=== PATIENT | female | born 1970 | race Caucasian/White ===

== ENCOUNTER → 2016-07-19 | Outpatient (CLI) | payer OTHER ==
[~2016-07-19] MED LIST: CALCIUM 600 +1 EA16 PO; DEXAMETHASONE4 MG PO; HYDROCHLOROTHIA25 MG PO; LEVETIRACETAM500 MG PO; VITAMIN D32000 UNI1 PO; ZESTORETIC 20-1 EAC1 PO
== END | disposition home or self-care (01) ==
LOC: JMC/R 07:57
DX: Z51.0 Encounter for antineoplastic radiation therapy (principal); C34.92 Malignant neoplasm of unspecified part of left bronchus or lung; C79.31 Secondary malignant neoplasm of brain
CPT/HCPCS: 77290; 77334

== ENCOUNTER 2016-11-09 13:07 | Observation (INO) | payer OTHER ==
[~2016-11-09] VITALS: Ht 157.5 cm; Wt 68.8 kg
[2016-11-09 14:13] LABS: HEMATOCRIT 25.3 % (36.0-46.0); MCH 31.7 PG (29.0-34.0); MCHC 33.2 G/DL (30.0-36.0); MCV 95.5 FL (83-99); MEAN PLAT.VOLUME 12.2 uM^3 (9.5-12.4); RBC DIS.WIDTH-CV 16.9 % (11.8-14.6); RBC DIS.WIDTH-SD 53.9 % (39-53); RED BLOOD COUNT 2.65 M/uL (3.80-5.20); WHITE BLOOD COUNT 5.9 K/uL (4.1-10.2)
[2016-11-09 14:25] LABS: D-DIMER ELISA 0.31 mg/L FEU (< 0.57)
[2016-11-09 14:25] LABS: PLATELET COUNT 65 K/uL (156-360)
[2016-11-09 14:30] LABS: CHLORIDE 99 mEq/L (99-109); POTASSIUM 3.6 mEq/L (3.7-5.4); SODIUM 135 mEq/L (136-147)
[2016-11-09 14:32] LABS: GLUCOSE 103 mg/dL (70-99)
[2016-11-09 14:33] LABS: ANION GAP 12 MEQ/L (2-14)
[2016-11-09 14:36] LABS: GFR ESTIMATE (CALCULATED) > 59 mL/min/
[2016-11-09 14:37] LABS: UREA NITROGEN (BUN) 7 mg/dL (9-23)
[2016-11-09 14:40] LABS: TROP-I INTERPRETATION NEGATIVE; TROPONIN-I < 0.01 ng/mL (0.0-0.30)
[2016-11-09 15:56] LABS: ABS NEUTROPHIL COUNT 4.5; ANISOCYTOSIS 1+; EOSINOPHIL ABS CT 0; LYMPHOCYTES 16.7 % (15.0-45.0); MACROCYTES 1+; MICROCYTOSIS 1+; NUCLEATED RBC'S 0.9; SEG.NEUTROPHILS 76.3 % (46.0-76.0); TEAR DROP CELLS 1+
[2016-11-09] MEDS ORDERED: KEPPRA500 MG PO (19:41)
[2016-11-09] MEDS ORDERED: ZESTORETIC 10-1 EAC1 PO (19:41)
[2016-11-09] MEDS ORDERED: FLUCONAZOLE100 MG PO (19:42)
[2016-11-09] MEDS ORDERED: CYANOCOBALAM1000 MCG PO (19:42)
[2016-11-09] MEDS ORDERED: ALPRAZOLAM0.25 M2 PO (19:42)
[2016-11-09] MEDS ORDERED: FOLIC ACID1 MG PO (19:43)
[2016-11-09] MEDS ORDERED: XARELTO20 MG PO (19:43)
[2016-11-09 21:50] VITALS: BP 123/76
[2016-11-10 04:02] VITALS: BP 107/55
[2016-11-10 06:42] LABS: HEMATOCRIT 26.1 % (36.0-46.0); MCH 32.7 PG (29.0-34.0); MCHC 34.1 G/DL (30.0-36.0); MEAN PLAT.VOLUME 12.3 uM^3 (9.5-12.4); PLATELET COUNT 77 K/uL (156-360); RBC DIS.WIDTH-CV 17.2 % (11.8-14.6); RBC DIS.WIDTH-SD 54.6 % (39-53); RED BLOOD COUNT 2.72 M/uL (3.80-5.20); WHITE BLOOD COUNT 3.3 K/uL (4.1-10.2)
[2016-11-10 07:06] LABS: ALKALINE PHOSPHATASE 86 IU/L (3-129); DIRECT BILIRUBIN 0.1 mg/dL (0.0-0.3); TOTAL BILIRUBIN 0.4 MG/DL (0.0-1.0)
[2016-11-10 07:40] LABS: ANION GAP 12 MEQ/L (2-14); CHLORIDE 102 MEQ/L (99-109); GFR ESTIMATE (CALCULATED) > 59 mL/min/; GLUCOSE 85 mg/dL (70-99); POTASSIUM 3.9 MEQ/L (3.7-5.4); SODIUM 140 MEQ/L (136-147); UREA NITROGEN (BUN) 6 mg/dL (9-23)
[2016-11-10 09:40] VITALS: BP 120/68
[2016-11-10 11:43] VITALS: BP 113/75
== END 2016-11-10 12:50 | disposition home or self-care (01) ==
LOC: EME 13:07 → 5WEST 20:03 → EDOF 20:03 → 5WEST 21:25
PROVIDERS: Hospitalist; Nurse Practitioner Family
DX: M25.521 Pain in right elbow (principal); M79.601 Pain in right arm; D64.9 Anemia, unspecified; D69.6 Thrombocytopenia, unspecified; I10 Essential (primary) hypertension; I82.491 Acute embolism and thrombosis of other specified deep vein of right lower extremity; Z79.01 Long term (current) use of anticoagulants; C34.32 Malignant neoplasm of lower lobe, left bronchus or lung; C79.31 Secondary malignant neoplasm of brain; B37.0 Candidal stomatitis; Z92.21 Personal history of antineoplastic chemotherapy; Z92.3 Personal history of irradiation; R59.1 Generalized enlarged lymph nodes; M89.9 Disorder of bone, unspecified; K76.9 Liver disease, unspecified; Z88.2 Allergy status to sulfonamides
CPT/HCPCS: 71020; 71260; 73080; 74177; 80048; 80048 91; 80076; 84484; 85007; 85027; 85379; 93005; 93971; 99281; 99285; G0378

== ENCOUNTER → 2017-02-09 | Outpatient (CLI) | payer OTHER ==
[~2017-02-09] MED LIST changes: +ACID REDUCER 1150 MG PO; +ALPRAZOLAM0.25 M2 PO; +CYANOCOBALAM1000 MCG PO; +FLUCONAZOLE100 MG PO; +FOLIC ACID1 MG PO; +KEPPRA500 MG PO; +TYLENOL EXTRA500 MG PO; +XARELTO20 MG PO; +ZESTORETIC 10-1 EAC1 PO
== END | disposition home or self-care (01) ==
LOC: NUC 11:00
DX: C79.51 Secondary malignant neoplasm of bone (principal); R93.7 Abnormal findings on diagnostic imaging of other parts of musculoskeletal system; C34.90 Malignant neoplasm of unspecified part of unspecified bronchus or lung; M79.631 Pain in right forearm
CPT/HCPCS: 78306; A9503

== ENCOUNTER 2017-03-03 21:08 | Inpatient (IN) | payer OTHER ==
[~2017-03-03] VITALS: Ht 160 cm; Wt 69.1 kg
[~2017-03-03 21:08] MED LIST changes: -ACID REDUCER 1150 MG PO; -CALCIUM 600 +1 EA16 PO; +CALCIUM 600 +1 EA17 PO; +ZANTAC150 MG PO
[2017-03-03 22:44] LABS: MCH 29.3 PG (29.0-34.0); MCHC 33.1 G/DL (30.0-36.0); MCV 88.4 FL (83-99); MEAN PLAT.VOLUME 11.3 uM^3 (9.5-12.4); PLATELET COUNT 172 K/uL (156-360); RBC DIS.WIDTH-CV 17.5 % (11.8-14.6); RBC DIS.WIDTH-SD 56.9 % (39-53); RED BLOOD COUNT 3.62 M/uL (3.80-5.20); WHITE BLOOD COUNT 10.2 K/uL (4.1-10.2)
[2017-03-03 22:55] LABS: CHLORIDE 95 mEq/L (99-109); POTASSIUM 3.5 mEq/L (3.7-5.4); SODIUM 135 mEq/L (136-147)
[2017-03-03 22:57] LABS: GLUCOSE 104 mg/dL (70-99)
[2017-03-03 22:58] LABS: ANION GAP 13 MEQ/L (2-14)
[2017-03-03 23:00] LABS: GFR ESTIMATE (CALCULATED) > 59 mL/min/
[2017-03-03 23:01] LABS: UREA NITROGEN (BUN) 15 mg/dL (9-23)
[2017-03-04] MEDS ORDERED: NITROFURANTOIN100 MG PO (01:25)
[2017-03-04] MEDS ORDERED: LOMOTIL TABLET1 EACH PO (01:29)
[2017-03-04] MEDS ORDERED: LEVETIRACETAM500 MG PO (01:30)
[2017-03-04] MEDS ORDERED: LISINOPRIL-HCT1 EACH PO (01:30)
[2017-03-04] MEDS ORDERED: GILOTRIF40 MG PO (01:40)
[2017-03-04 03:35] VITALS: BP 121/71
[2017-03-04 08:27] VITALS: BP 106/67
[2017-03-04 08:28] VITALS: BP 118/79; BP 122/81
[2017-03-04 12:03] VITALS: BP 111/70
[2017-03-04 12:09] LABS: C DIFF TOXIN POSITIVE (NEGATIVE)
[2017-03-04 12:27] LABS: PROBE CHECK PASS
[2017-03-04 17:11] VITALS: BP 114/75
[2017-03-04 19:30] VITALS: BP 110/70
[2017-03-05 00:17] VITALS: BP 122/65
[2017-03-05 04:19] VITALS: BP 104/66
[2017-03-05 06:55] LABS: HEMATOCRIT 25.2 % (36.0-46.0); MCH 29.7 PG (29.0-34.0); MCHC 32.9 G/DL (30.0-36.0); MCV 90.3 FL (83-99); MEAN PLAT.VOLUME 11.3 uM^3 (9.5-12.4); PLATELET COUNT 168 K/uL (156-360); RBC DIS.WIDTH-SD 60.1 % (39-53); WHITE BLOOD COUNT 12.2 K/uL (4.1-10.2)
[2017-03-05 06:59] LABS: RED BLOOD COUNT 2.79 M/uL (3.80-5.20)
[2017-03-05 07:16] LABS: ANION GAP 11 MEQ/L (2-14); CHLORIDE 107 MEQ/L (99-109); GFR ESTIMATE (CALCULATED) > 59 mL/min/; GLUCOSE 101 mg/dL (70-99); POTASSIUM 3.8 MEQ/L (3.7-5.4); SAMPLE HEMOLYSIS CHECK 0; SAMPLE ICTERIC CHECK 0; SAMPLE LIPEMIA CHECK 0; SODIUM 141 MEQ/L (136-147); UREA NITROGEN (BUN) 15 mg/dL (9-23)
[2017-03-05 08:02] VITALS: BP 118/78
[2017-03-05 16:11] VITALS: BP 104/64
[2017-03-06] VITALS (7 sets, daily range): BP systolic 109–124; BP diastolic 62–80
[2017-03-07 03:39] VITALS: BP 118/64
[2017-03-07 07:32] VITALS: BP 128/81
[2017-03-07 09:25] LABS: HEMATOCRIT 29.2 % (36.0-46.0); MCH 29.6 PG (29.0-34.0); MCHC 32.2 G/DL (30.0-36.0); MCV 91.8 FL (83-99); MEAN PLAT.VOLUME 11.3 uM^3 (9.5-12.4); NRBC (%) 0.1 /100 WBC (0-0); RBC DIS.WIDTH-CV 18.6 % (11.8-14.6); RBC DIS.WIDTH-SD 61.5 % (39-53); RED BLOOD COUNT 3.18 M/uL (3.80-5.20); WHITE BLOOD COUNT 22.8 K/uL (4.1-10.2)
[2017-03-07 09:28] LABS: PLATELET COUNT 228 K/uL (156-360)
[2017-03-07 09:29] LABS: POINT-OF-CARE METER ID UU14188625
[2017-03-07 09:34] LABS: POTASSIUM 4.4 mEq/L (3.7-5.4); SODIUM 138 mEq/L (136-147)
[2017-03-07 09:36] LABS: CHLORIDE 112 mEq/L (99-109); GLUCOSE 113 mg/dL (70-99)
[2017-03-07 09:38] LABS: ANION GAP 10 MEQ/L (2-14)
[2017-03-07 09:40] LABS: GFR ESTIMATE (CALCULATED) > 59 mL/min/
[2017-03-07 09:41] LABS: UREA NITROGEN (BUN) 14 mg/dL (9-23)
[2017-03-07 11:54] VITALS: BP 126/82
[2017-03-07 15:33] VITALS: BP 113/67
[2017-03-07 19:22] VITALS: BP 118/64
[2017-03-07 23:26] VITALS: BP 108/66
[2017-03-08 07:34] VITALS: BP 116/60
[2017-03-08 08:16] LABS: ANION GAP 6 MEQ/L (2-14); CHLORIDE 115 MEQ/L (99-109); GFR ESTIMATE (CALCULATED) > 59 mL/min/; GLUCOSE 87 mg/dL (70-99); POTASSIUM 5.1 MEQ/L (3.7-5.4); SAMPLE HEMOLYSIS CHECK 0; SAMPLE ICTERIC CHECK 0; SAMPLE LIPEMIA CHECK 0; SODIUM 141 MEQ/L (136-147); UREA NITROGEN (BUN) 12 mg/dL (9-23)
[2017-03-08 11:55] LABS: EOSINOPHIL (%) 0 % (0-5); HEMATOCRIT 29.8 % (36.0-46.0); IMMATURE GRANULOCYTE (%) 1.4 % (0.0-0.7); IMMATURE GRANULOCYTE COUNT 0.3 K/uL; INSTRUMENT ABS NEUTROPHIL CT 19.3 K/uL; LYMPHOCYTE COUNT 0.4 K/uL (1.0-2.8); MCH 29.2 PG (29.0-34.0); MCHC 31.2 G/DL (30.0-36.0); MCV 93.4 FL (83-99); MEAN PLAT.VOLUME 11.3 uM^3 (9.5-12.4); MONOCYTE (%) 3.2 % (3-12); MONOCYTE COUNT 0.7 K/uL (0-0.8); NEUTROPHIL (%) 93.3 % (45-76); NEUTROPHIL COUNT 19.3 K/uL (1.8-6.4); NRBC (%) 0.2 /100 WBC (0-0); PLATELET COUNT 182 K/uL (156-360); RBC DIS.WIDTH-CV 19.2 % (11.8-14.6); RBC DIS.WIDTH-SD 63.4 % (39-53); RED BLOOD COUNT 3.19 M/uL (3.80-5.20); WHITE BLOOD COUNT 20.7 K/uL (4.1-10.2)
[2017-03-08] MEDS ORDERED: METRONIDAZOLE500 MG PO (13:21)
[2017-03-08] MEDS ORDERED: LEVETIRACETAM500 MG PO (13:22)
[2017-03-08] MEDS ORDERED: DEXAMETHASONE4 MG PO (13:22)
[2017-03-08] MEDS ORDERED: LISINOPRIL10 MG PO (13:23)
== END 2017-03-08 15:03 | disposition home or self-care (01) | DRG 54 ==
LOC: EME 21:08 → EDOF 03-04 02:11 → ENRESERV 03-04 02:12 → 5WEST 03-04 03:33 → 5SOUTH 03-04 14:17 → ENRESERV 03-04 21:37 → 5SOUTH 03-04 23:03 → ENPENDDIS 03-08 → 5SOUTH 03-08 15:03
PROVIDERS: Anesthesiology; Emergency Medicine; Family Medicine; Hospitalist; Nurse Practitioner Family; Student in an Organized Health Care Education/Training Program
DX: C79.31 Secondary malignant neoplasm of brain (principal); G93.6 Cerebral edema; R56.9 Unspecified convulsions; A04.72 Enterocolitis due to Clostridium difficile, not specified as recurrent; R55 Syncope and collapse; T45.1X5A Adverse effect of antineoplastic and immunosuppressive drugs, initial encounter; E87.1 Hypo-osmolality and hyponatremia; E87.2 Acidosis; E87.6 Hypokalemia; E86.0 Dehydration; I10 Essential (primary) hypertension; C34.90 Malignant neoplasm of unspecified part of unspecified bronchus or lung; C78.7 Secondary malignant neoplasm of liver and intrahepatic bile duct; C79.51 Secondary malignant neoplasm of bone; Z86.718 Personal history of other venous thrombosis and embolism; Z79.01 Long term (current) use of anticoagulants; Z92.3 Personal history of irradiation; Z92.21 Personal history of antineoplastic chemotherapy; Z79.899 Other long term (current) drug therapy; Z87.440 Personal history of urinary (tract) infections
CPT/HCPCS: 70470; 70553; 80048; 82948; 83735; 84450; 84460; 85025; 85027; 86850; 86900; 86901; 87493; 93005; 99281; 99285; J1100; J7030; J8540; S0028

== ENCOUNTER 2017-04-01 09:47 | Inpatient (IN) | payer OTHER ==
[~2017-04-01] VITALS: Ht 160 cm; Wt 68.2 kg
[2017-04-01] VITALS (8 sets, daily range): BP systolic 124–154; BP diastolic 82–92
[~2017-04-01 09:47] MED LIST changes: +GILOTRIF40 MG PO; +LISINOPRIL-HCT1 EACH PO; +LISINOPRIL10 MG PO; +LOMOTIL TABLET1 EACH PO; +METRONIDAZOLE500 MG PO; +NITROFURANTOIN100 MG PO
[2017-04-01 10:56] LABS: HEMATOCRIT 34.4 % (36.0-46.0); MCH 30.9 PG (29.0-34.0); MCHC 31.4 G/DL (30.0-36.0); NRBC (%) 2.4 /100 WBC (0-0); RBC DIS.WIDTH-CV 22.1 % (11.8-14.6); RBC DIS.WIDTH-SD 78.9 % (39-53); RED BLOOD COUNT 3.49 M/uL (3.80-5.20); WHITE BLOOD COUNT 10.1 K/uL (4.1-10.2)
[2017-04-01 10:57] LABS: INTER. NORMALIZED RATIO 1.3; MCV 98.6 FL (83-99); PROTHROMBIN TIME 14.3 SEC (10.2-12.9)
[2017-04-01 10:58] LABS: CHLORIDE 107 mEq/L (99-109); POTASSIUM 3.5 mEq/L (3.7-5.4); SODIUM 136 mEq/L (136-147)
[2017-04-01 11:00] LABS: GLUCOSE 118 mg/dL (70-99); PTT 23.6 SEC (25-37)
[2017-04-01 11:01] LABS: ANION GAP 11 MEQ/L (2-14)
[2017-04-01 11:02] LABS: TOTAL BILIRUBIN 0.8 mg/dL (0.0-1.0)
[2017-04-01 11:04] LABS: ALKALINE PHOSPHATASE 90 IU/L (3-129); GFR ESTIMATE (CALCULATED) > 59 mL/min/
[2017-04-01 11:05] LABS: UREA NITROGEN (BUN) 19 mg/dL (9-23)
[2017-04-01 11:33] LABS: ADD MIUA? YES; BILIRUBIN NEGATIVE; BLOOD SMALL; COLOR YELLOW ((YELLOW)); GLUCOSE (STRIP) NEGATIVE; KETONES NEGATIVE; LEUKOCYTES LARGE; NITRITE NEGATIVE; PROTEIN (STRIP) 30; UROBILINOGEN 0.2 MG/DL (0.2-1.0)
[2017-04-01 11:43] LABS: EOSINOPHIL (%) 1.5 % (0-5); EOSINOPHIL COUNT 0.2 K/uL (0-0.3); IMM.PLATELET FRACTION 9.4 (1-7); IMMATURE GRANULOCYTE COUNT 0.2 K/uL; LYMPHOCYTE COUNT 0.3 K/uL (1.0-2.8); MONOCYTE (%) 4.2 % (3-12); MONOCYTE COUNT 0.4 K/uL (0-0.8); PLAT.SUFFICIENCY VERY DECREASED
[2017-04-01 11:46] LABS: PLATELET COUNT 10 K/uL (156-360)
[2017-04-01 11:48] LABS: BACTERIA RARE /HPF; EPITHELIAL CELLS RARE /HPF; MUCUS 1+ /LPF; RED BLOOD CELLS 0-5 /HPF (0-5); UCUL ADDED? YES; WHITE BLOOD CELLS 15-20 /HPF (0-5)
[2017-04-01] MEDS ORDERED: RANITIDINE HCL150 MG PO (14:29)
[2017-04-01] MEDS ORDERED: DEXAMETHASONE4 MG PO (14:30)
[2017-04-02 04:10] LABS: HEMATOCRIT 25.4 % (36.0-46.0); MCHC 31.9 G/DL (30.0-36.0); MCV 97.3 FL (83-99); NRBC (%) 1.7 /100 WBC (0-0); RBC DIS.WIDTH-CV 22.1 % (11.8-14.6); RBC DIS.WIDTH-SD 78.4 % (39-53); WHITE BLOOD COUNT 6.5 K/uL (4.1-10.2)
[2017-04-02 04:19] LABS: CHLORIDE 111 mEq/L (99-109); SODIUM 138 mEq/L (136-147)
[2017-04-02 04:21] LABS: GLUCOSE 99 mg/dL (70-99)
[2017-04-02 04:22] LABS: ANION GAP 6 MEQ/L (2-14)
[2017-04-02 04:23] LABS: RED BLOOD COUNT 2.61 M/uL (3.80-5.20)
[2017-04-02 04:37] VITALS: BP 138/84
[2017-04-02 04:59] LABS: ALKALINE PHOSPHATASE 90 IU/L (3-129); GFR ESTIMATE (CALCULATED) > 59 mL/min/; TOTAL BILIRUBIN 1.1 mg/dL (0.0-1.0); UREA NITROGEN (BUN) 17 mg/dL (9-23)
[2017-04-02 05:57] LABS: IMM.PLATELET FRACTION 1.6 (1-7); MEAN PLAT.VOLUME 9.7 uM^3 (9.5-12.4); PLAT.SUFFICIENCY VERY DECREASED; PLATELET COUNT 41 K/uL (156-360)
[2017-04-02 08:26] VITALS: BP 145/88
[2017-04-02 12:49] VITALS: BP 138/89
[2017-04-02 16:45] VITALS: BP 128/74
[2017-04-02 19:52] VITALS: BP 137/85
[2017-04-02 23:18] VITALS: BP 126/90
[2017-04-03 06:24] LABS: ANION GAP 12 MEQ/L (2-14); CHLORIDE 110 MEQ/L (99-109); GFR ESTIMATE (CALCULATED) > 59 mL/min/; POTASSIUM 3.8 MEQ/L (3.7-5.4); SAMPLE HEMOLYSIS CHECK 0; SAMPLE ICTERIC CHECK 0; SAMPLE LIPEMIA CHECK 0; SODIUM 142 MEQ/L (136-147); UREA NITROGEN (BUN) 19 mg/dL (9-23)
[2017-04-03 06:34] LABS: GLUCOSE 149 mg/dL (70-99)
[2017-04-03 06:48] LABS: NRBC (%) 1.4 /100 WBC (0-0)
[2017-04-03 07:08] VITALS: BP 165/84
[2017-04-03 07:17] LABS: EOSINOPHIL (%) 0 % (0-5); IMM.PLATELET FRACTION 6.1 (1-7); IMMATURE GRANULOCYTE (%) 2.7 % (0.0-0.7); IMMATURE GRANULOCYTE COUNT 0.3 K/uL; INSTRUMENT ABS NEUTROPHIL CT 8.6 K/uL; LYMPHOCYTE COUNT 0.2 K/uL (1.0-2.8); MCH 31.3 PG (29.0-34.0); MCHC 32.1 G/DL (30.0-36.0); MCV 97.2 FL (83-99); MONOCYTE (%) 2.2 % (3-12); MONOCYTE COUNT 0.2 K/uL (0-0.8); NEUTROPHIL (%) 93.2 % (45-76); NEUTROPHIL COUNT 8.6 K/uL (1.8-6.4); PLAT.SUFFICIENCY VERY DECREASED; RBC DIS.WIDTH-SD 78.9 % (39-53); RED BLOOD COUNT 2.88 M/uL (3.80-5.20); WHITE BLOOD COUNT 9.2 K/uL (4.1-10.2)
[2017-04-03 07:18] LABS: PLATELET COUNT 13 K/uL (156-360)
[2017-04-03 07:38] VITALS: BP 144/94
[2017-04-03 11:52] VITALS: BP 144/94
== END 2017-04-03 14:15 | DRG 189 ==
LOC: EME 09:47 → 4EAST 12:40 → 5EAST 12:40 → EDOF 12:40 → ENRESERV 12:47 → EDOF 13:07 → ENRESERV 13:16 → 5EAST 14:41 → ENRESERV 16:39 → 4EAST 18:57 → ENRESERV 04-03 → 4EAST 04-03 11:11 → ENRESERV 04-03 11:12 → 5EAST 04-03 12:11
PROVIDERS: Emergency Medicine; Hospitalist; Student in an Organized Health Care Education/Training Program
DX: J96.01 Acute respiratory failure with hypoxia (principal); J18.9 Pneumonia, unspecified organism; C79.31 Secondary malignant neoplasm of brain; C78.7 Secondary malignant neoplasm of liver and intrahepatic bile duct; C34.92 Malignant neoplasm of unspecified part of left bronchus or lung; J91.0 Malignant pleural effusion; D69.59 Other secondary thrombocytopenia; I10 Essential (primary) hypertension; C79.51 Secondary malignant neoplasm of bone; Y95 Nosocomial condition; Z51.5 Encounter for palliative care; I31.3 Pericardial effusion (noninflammatory); E86.0 Dehydration; D69.2 Other nonthrombocytopenic purpura; D64.9 Anemia, unspecified; K21.9 Gastro-esophageal reflux disease without esophagitis; R56.9 Unspecified convulsions; T45.1X5A Adverse effect of antineoplastic and immunosuppressive drugs, initial encounter; Z79.899 Other long term (current) drug therapy; Z85.118 Personal history of other malignant neoplasm of bronchus and lung; Z92.3 Personal history of irradiation
CPT/HCPCS: 36415; 71010; 80048; 80053; 80202; 81003; 82140; 83605; 85025; 85027; 85610; 85730; 86850; 86900; 86901; 87040; 87077; 87086; 87186; 87801; 93005; 94640; 94640 76; 94799; 99202; 99281; 99285; J2270; J2543; J2930; J3370; J7050; J7120; J8540; P9035